=== PATIENT | female | born 1975 | race Caucasian/White ===

== ENCOUNTER 2016-10-24 08:11 | Day surgery (SDC) | payer MEDICAID ==
[2016-10-24] MEDS ORDERED: NS 1,000 ML IV SCH (09:15)
[2016-10-24] MEDS ORDERED: fentaNYL 100 MCG/2 ML INJ ONE (09:25)
[2016-10-24] MEDS ORDERED: MIDAZOLAM 2 MG/2 ML VIAL ONE (09:25)
[2016-10-24] MEDS ORDERED: IOPAMIDOL (ISOVUE-300) 100 ML BTL ONE (10:35)
[2016-10-24 11:53] VITALS: BP 138/79; PULSE 69; RESP 16; TEMP 97.5; O2SAT 100
== END 2016-10-24 11:28 | disposition home or self-care (01) ==
LOC: FIMAGING 08:11
PROVIDERS: ATTEND Nurse Practitioner Family
PROC: B51W1ZZ Fluoroscopy of Dialysis Shunt/Fistula using Low Osmolar Contrast (ICD-10-PCS; principal; 2016-10-24 10:43)
DX: T82.898A Other specified complication of vascular prosthetic devices, implants and grafts, initial encounter (principal); N18.6 End stage renal disease; Z99.2 Dependence on renal dialysis; Z85.3 Personal history of malignant neoplasm of breast
CPT/HCPCS: C1769; J1644; J2250; J3010; Q9967

== ENCOUNTER 2017-01-10 07:20 | Day surgery (SDC) | payer MEDICAID ==
--- NOTE | 2017-01-09 14:26 | GHP ---
[f rep st] PREOP HISTORY AND PHYSICAL DATE OF ADMISSION: 01/10/2017 REASON FOR ADMISSION: The patient is a 41-year-old female with chronic renal failure, on hemodialysi s, who had an arteriovenous fistula created many years ago. She required resection of an aneurysm in 2009 and repair of a pseudoaneurysm [place] [address] Mcmillan. She now comes to us after having a left upper extremity ultrasound-guided AV fistula access fistulogram with retrograde angiography to rule out stenosis, which showed a patent AV fistula, but with multiple pseudoaneurysms. She complained th at she can feel a thrill when she lies down, which keeps her awake. These are painful and prevent he r from flexing at her elbow. It also causes pain during dialysis. PAST MEDICAL HISTORY: End-stage renal disease, on dialysis. History of hyperkalemia, likely due to noncompliance, history of iron deficiency anemia, history of severe erosive esophagitis. PAST SURGICAL HISTORY: Includes arteriovenous fistula creation with aneurysm resection and pseudoane urysm repair as described above. Also, cholecystectomy, renal transplant, eardrum surgery, kidney re moval, tubal ligation. MEDICATIONS: Include losartan, potassium, Renagel, Renvela. She denies blood thinner use. ALLERGIES: Include amoxicillin, iron, Zofran, aspirin, grapefruit and penicillin. SOCIAL HISTORY: Patient smokes tobacco on occasion. She does not drink alcohol. She lives with her sister. REVIEW OF SYSTEMS: A 10-point review of systems negative aside from that noted in the HPI. PHYSICAL EXAMINATION: GENERAL: A 41-year-old female, alert and oriented x3, and in no acute distres s. HEENT: Normocephalic, atraumatic. CHEST: Clear to auscultation bilaterally. CARDIAC: Regular rate and rhythm with systolic murmur. EXTREMITIES: Palpable left upper extremity radial pulse with several aneurysms visible between the a ntecubital space to the proximal arm. Left hand is warm to touch. Fine motor exam is intact. ABDOMEN: Soft, nontender. IMPRESSION: This is a 41-year-old female with a long history of a left upper extremity arteriovenous fistula, now with multiple pseudoaneurysms. PLAN: Plan is to proceed with left upper extremity AV fistula revision, with repair of pseudoaneurys ms. This will likely need to occur in 2 stages. The patient understands that she will likely need t o return to the operating room for resection of other pseudoaneurysms along the length of her fistula . We will also be obtaining cardiac clearance prior to her surgery. The patient was seen and examin ed by Dr. Mcmillan. /[id number]/MODL
[2017-01-10] MEDS ORDERED: CLINDAMYCIN 900 MG/DEXTROSE 50 ML IV ONE (07:53)
[2017-01-10] MEDS ORDERED: LIDOCAINE 1% 2 ML INJ ID PRN (07:54)
--- NOTE | 2017-01-10 08:23 | PDANEPAE ---
ANE History of Present Illness 41 year old female w/ PMHx of ESRD (on HD, previous renal transplant in 2004), breast cancer s/p mastectomy, depression presents for left AV fistula revision. ANE Past Medical History - Cardiovascular History Hx Hypertension: Yes Hx Arrhythmias: No Hx Chest Pain: No Hx Coronary Artery / Peripheral Vascular Disease: No Hx CHF / Valvular Disease: No Hx Palpitations: No Cardiovascular History Comment: heart murmur - Pulmonary History Hx COPD: No Hx Asthma/Reactive Airway Disease: No Hx Recent Upper Respiratory Infection: No Hx Oxygen in Use at Home: No Hx Sleep Apnea: No Sleep Apnea Screening Result - Last Documented: Negative Pulmonary History Comment: URI BEGINNING 2014 - Neurologic History Hx Cerebrovascular Accident: No Hx Seizures: No Hx Dementia: No - Endocrine History Hx Diabetes: No Hypothyroid: No Hyperthyroid: No Obesity: no Endocrine History Comment: PARATHYROID REMVL - Renal History Hx Renal Disorders: Yes Renal History Comment: ESRD - Liver History Hx Hepatic Disorders: No - Neurological & Psychiatric Hx Hx Neurological and Psychiatric Disorders: Yes Neurological / Psychiatric History Comment: DEPRESSION - Cancer History Hx Cancer: Yes Cancer History Comment: Breast cancer 2016 - Congenital Disorder History Hx Congenital Disorders: No - GI History Hx Gastrointestinal Disorders: Yes Gastrointestinal History Comment: REFLUX, pepitc ulcer disease - Other Health History Other Health History: none - Chronic Pain History Chronic Pain: Yes (carpal tunnel) - Surgical History Prior Surgeries: LT AV FISTULA X 2. WENDI 2009. RT KIDNEY NEPHRECTOMY WITH TRANSPLANT 2004. PARATHYROIDECTOMY. Double mastectomy 2016. TUBAL LIGATION. T&T. LT EAR DRUM REBUILT ANE Review of Systems Review of systems is: negative Review of Systems: - Exercise capacity Exercise capacity: >=4 METS METS (RN): 4 METS ANE Patient History - Allergies Allergies/Adverse Reactions: amoxicillin [Amoxicillin] Allergy (Severe, Verified 08/26/09 18:07) CHEST CLOSES/HIVES iron [Iron] Allergy (Intermediate, Verified 08/26/09 18:06) Hives ondansetron [From Zofran (as hydrochloride)] Allergy (Intermediate, Verified 12:15) Hives aspirin [Aspirin] Allergy (Unknown, Verified 02/23/15 11:41) AVOID RT KIDNEY TRANSPLANT grapefruit [Grapefruit] Allergy (Unknown, Verified 02/23/15 11:41) AVOID RT KIDNEY TRANSPLANT NSAIDS (Non-Steroidal Anti-Inflamma [Nsaids] Allergy (Unknown, Verified 11:41) AVOID RT KIDNEY TRANSPLANT ascorbic acid Allergy (Verified 02/23/15 11:41) RASH/HIVES Penicillins Allergy (Verified 02/23/15 11:41) CHEST CLOSES/HIVES PLASTIC TAPE Allergy (Mild, Uncoded 08/26/09 18:08) Rash - Home Medications Home medications: home medication list seen and reviewed Home Medications: RX: Calcium Carbonate [Tums 500MG (*)] 500 mg PO TID PRN 02/23/15 [Last Taken 15:00] RX: Lansoprazole [Prevacid] 30 mg PO DAILY 02/23/15 [Last Taken 10/23/16] RX: Losartan Potassium [Cozaar] 50 mg PO MWF@07 02/23/15 [Last Taken 01/09/17 15 :00] RX: Sevelamer Carbonate [Renvela] 1,600 mg PO TIDMEAL 02/23/15 [Last Taken 01/09 20:00] - NPO status NPO Status: no food or drink >8 hours - Anes Hx Anes Hx: no prior problems - Smoking Hx Smoking Status: Light smoker Marijuana use: No - Alcohol Use Alcohol Use: Rarely - Family Anes Hx Family Anes Hx: neg - N/A Family Hx Anesthesia Complications: none ANE Labs/Vital Signs - Labs Result Diagrams: 01/10/17 08:20 - Vital Signs Vital Signs: reviewed preoperatively; see RN documention for details Height: 160.02 cm Weight: 49.895 kg ANE Physical Exam - Airway Neck exam: FROM Mallampati Score: Class 1 Mouth exam: normal dental/mouth exam - Pulmonary Pulmonary: no respiratory distress - Cardiovascular Cardiovascular: regular rate and rhythym - ASA Status ASA Status: IV ANE Anesthesia Plan Anesthesia Plan: general endotracheal anesthesia Total IV Anesthesia: No
[2017-01-10] MEDS ORDERED: PAPAVERINE HCL 60 MG/2 ML SDV ONE (08:24)
[2017-01-10] MEDS ORDERED: THROMBIN (BOVINE) 20,000 UNIT SPRAY TP ONE (08:26)
[2017-01-10] MEDS ORDERED: THROMBIN (BOVINE) 5,000 UNIT VIAL TP ONE (08:26)
[2017-01-10] MEDS ORDERED: PROTAMINE SULFATE 50 MG/5 ML VIAL IVP ONE (08:26)
[2017-01-10] MEDS ORDERED: BUPIVACAINE 0.5% 30 ML SDV ONE (08:26)
[2017-01-10 08:33] VITALS: TEMP 97.7
[2017-01-10 08:41] LABS: ANION GAP 19 mEq/L (8-16); CALCIUM 9.4 mg/dL (8.5-10.4); CARBON DIOXIDE 24 mEq/l (22-31); CHLORIDE 96 mEq/L (97-110); CREATININE 7.2 mg/dL (0.6-1.0); GLOMERULAR FILTRATION RATE 6; GLUCOSE 84 mg/dL (70-100); POTASSIUM 5.4 mEq/L (3.5-5.2); SODIUM 139 mEq/L (134-144)
--- NOTE | 2017-01-10 09:00 | CPEKG ---
Heart Rate: 77 RR Interval: 779 P-R Interval: 148 QRSD Interval: 70 QT Interval: 400 QTC Interval: 453 P [place]: 65 QRS [place]: 25 T Wave [place]: 54 EKG Severity - ABNORMAL ECG - EKG Impression: SINUS RHYTHM EKG Impression: LEFT VENTRICULAR HYPERTROPHY Electronically Signed By: Slade Dee 10-Jan-2017 11:35:39
[2017-01-10] MEDS ORDERED: NS 1,000 ML IV ONE (09:16)
[2017-01-10] MEDS ORDERED: MIDAZOLAM 2 MG/2 ML VIAL IVP ONE (09:21)
[2017-01-10] MEDS ORDERED: fentaNYL 100 MCG/2 ML INJ ONE ×4 (09:31→11:42)
[2017-01-10] MEDS ORDERED: LIDOCAINE 2% 100 MG/5 ML SYR ONE (09:31)
[2017-01-10] MEDS ORDERED: PROPOFOL 200 MG/20 ML VIAL ONE (09:32)
[2017-01-10] MEDS ORDERED: NS 500 ML IV ONE (09:40)
[2017-01-10] MEDS ORDERED: PHENYLEPHRINE HCL 100 MCG/ML SYR ONE (10:04)
[2017-01-10] MEDS ORDERED: NALOXONE HCL 0.4 MG/ML INJ IVP PRN (10:16)
[2017-01-10] MEDS ORDERED: PROMETHAZINE HCL 25 MG/ML INJ IVP PRN (10:16)
[2017-01-10] MEDS ORDERED: HYDROCODONE/APAP 5/325 TAB PO PRN (10:16)
[2017-01-10] MEDS ORDERED: LR 500 ML IV PRN (10:16)
[2017-01-10] MEDS: fentaNYL 100 MCG/2 ML INJ IVP PRN ×3 (11:25→11:45)
[2017-01-10] MEDS ORDERED: OXYCODONE/APAP 5/325 TAB ONE (11:43)
[2017-01-10] MEDS ORDERED: HYDROCODONE/APAP 5/325 TAB ONE (11:51)
[2017-01-10 12:20] VITALS: BP 173/89; PULSE 70; RESP 18; O2SAT 98
--- NOTE | 2017-01-10 19:56 | POSTANESTH ---
Post Anesthetic Evaluation Cardiovascular Status: Normal, Stable, Similar to Pre-Op Cond Respiratory Status: Normal, Stable, Similar to Pre-op Cond. Level of Consciousness/Mental Status: Can Participate in Eval, Alert and Oriented Pain Control: Adequate, Prn Tx Ordered Nausea/Vomiting Control: Adequate, Prn Tx Ordered Complications Possibly Related to Anesthesia: None Noted
--- NOTE | 2017-01-14 14:11 | GOP ---
[f rep st] OPERATIVE REPORT DATE OF OPERATION: 01/10/2017 SURGEON: Alberto Mcmillan MD ELECTRIC ORGAN INSPECTOR AND REPAIRER: LION Thomas. ANESTHESIA: Dr. Luis M Kingsley. PREOPERATIVE DIAGNOSIS: Symptomatic left arm arteriovenous fistula aneurysm. POSTOPERATIVE DIAGNOSIS: Symptomatic left arm arteriovenous fistula aneurysm. PROCEDURE PERFORMED: FINDINGS: Patient was found to have 2 areas of pseudoaneurysm formation in the left arm AV fistula, which was in the mid section of the fistula. She had a good section above and below for use in dialy sis. DESCRIPTION OF PROCEDURE: The patient was taken to the operating room where she received satisfactor y general endotracheal anesthesia by Dr. Kingsley. She was placed in the supine position with the le ft arm outstretched on an arm board. A longitudinal incision was made over the 2 separate aneurysms. Prior to this, a transverse incision was made proximal to the aneurysms where the vessel was encirc led for control with the vessel loop. A longitudinal incision was then made over the aneurysms. Car eful dissection extended down through subcutaneous tissue and the aneurysms were dissected free from the overlying skin and subcutaneous tissue. Distal control was also obtained by controlling the outf low vessel with a vessel loop. After adequate exposure was obtained, the patient was systemically he parinized and the vessels were occluded with vessel loops. The aneurysms were then opened longitudin ally. There was no significant debris. Aneurysm becker were debrided and then closed over 8 Bakes di lator in a 2-layer fashion using running 4-0 Prolene suture in 2 separate layers to perform the aneur ysmorrhaphy. Flow was reestablished. The wound was infiltrated with 0.5% Marcaine. Hemostasis appe ared to be adequate. Heparin was reversed with protamine. She maintained a good thrill and flow in the AV fistula. Subcu was then closed with 3-0 Vicryl and the skin with interrupted macey. The wo und was infiltrated with 0.5%Marcaine. She tolerated the procedure well and was taken to the recover y room in good condition. There were no complications. PROCEDURE PERFORMED: 1. Ultrasound vein mapping of the left arm arteriovenous fistula. 2. Resection of arteriovenous fistula aneurysms. /[id number]/MODL
== END 2017-01-10 12:40 | disposition home or self-care (01) ==
LOC: FSGY 07:20
PROVIDERS: ATTEND Surgery
PROC: 03V Upper Arteries, Restriction (ICD-10-PCS; principal; 2017-01-10 09:00)
DX: T82.898A Other specified complication of vascular prosthetic devices, implants and grafts, initial encounter (principal); N18.6 End stage renal disease; Z88.0 Allergy status to penicillin; D50.9 Iron deficiency anemia, unspecified; F17.210 Nicotine dependence, cigarettes, uncomplicated; Y83.2 Surgical operation with anastomosis, bypass or graft as the cause of abnormal reaction of the patient, or of later complication, without mention of misadventure at the time of the procedure; Z90.5 Acquired absence of kidney; T86.12 Kidney transplant failure; Z99.2 Dependence on renal dialysis
CPT/HCPCS: J1644; J2001; J2250; J2370; J2440; J2704; J2720; J3010

== ENCOUNTER → 2017-03-13 | Day surgery (SDC) | payer MEDICAID ==
[~2017-03-13] MED LIST: BUPIVACAINE 0.5% 30 ML SDV ONE; CLINDAMYCIN 900 MG/DEXTROSE 50 ML IV ONE; ETOMIDATE 20 MG/10 ML VIAL ONE; LIDOCAINE 1% 2 ML INJ ID PRN; LR 1,000 ML IV ONE; NS 1,000 ML IV ONE; PAPAVERINE HCL 60 MG/2 ML SDV ONE; PROTAMINE SULFATE 50 MG/5 ML VIAL IVP ONE; ROCURONIUM 50 MG/5 ML VIAL ONE; THROMBIN (BOVINE) 20,000 UNIT SPRAY TP ONE; THROMBIN (BOVINE) 5,000 UNIT VIAL TP ONE; fentaNYL 100 MCG/2 ML INJ ONE
[2017-03-13 06:22] VITALS: BP 107/69; PULSE 65; RESP 16; TEMP 98.6; O2SAT 95
--- NOTE | 2017-03-13 06:43 | PDANEPAE ---
ANE History of Present Illness 41 year old female with ESRD on HD for 20 years. Last HD 03/12/17. Blood pressure well controlled on losartan. Today was 107/69. She had some nausea with the last anesthetic. Denies pulmonary issues. ANE Past Medical History - Cardiovascular History Hx Hypertension: Yes Hx Arrhythmias: No Hx Chest Pain: No Hx Coronary Artery / Peripheral Vascular Disease: No Hx CHF / Valvular Disease: Yes Hx Palpitations: No Cardiovascular History Comment: heart murmur - Pulmonary History Hx COPD: No Hx Asthma/Reactive Airway Disease: No Hx Recent Upper Respiratory Infection: No Hx Oxygen in Use at Home: No Hx Sleep Apnea: No Sleep Apnea Screening Result - Last Documented: Negative Pulmonary History Comment: URI BEGINNING 2014 - Neurologic History Hx Cerebrovascular Accident: No Hx Seizures: No Hx Dementia: No - Endocrine History Hx Diabetes: No Endocrine History Comment: PARATHYROID REMVL - Renal History Hx Renal Disorders: Yes Renal History Comment: ESRD. Kidney transplant 2004 - Liver History Hx Hepatic Disorders: No - Neurological & Psychiatric Hx Hx Neurological and Psychiatric Disorders: Yes Neurological / Psychiatric History Comment: DEPRESSION - Cancer History Hx Cancer: Yes Cancer History Comment: Breast cancer 2016 - Congenital Disorder History Hx Congenital Disorders: Yes Congenital History Comment: BREAST CANCER - GI History Hx Gastrointestinal Disorders: Yes Gastrointestinal History Comment: REFLUX, pepitc ulcer disease - Other Health History Other Health History: none - Chronic Pain History Chronic Pain: No - Surgical History Prior Surgeries: LT AV FISTULA X 2. WENDI 2009. RT KIDNEY NEPHRECTOMY WITH TRANSPLANT 2004. PARATHYROIDECTOMY. Double mastectomy 2016. TUBAL LIGATION. T&T. LT EAR DRUM REBUILT ANE Review of Systems Review of Systems: - Exercise capacity METS (RN): 4 METS ANE Patient History - Allergies Allergies/Adverse Reactions: amoxicillin [Amoxicillin] Allergy (Severe, Verified 03/12/17 14:49) CHEST CLOSES/HIVES iron [Iron] Allergy (Intermediate, Verified 03/12/17 14:49) Hives ondansetron [From Zofran (as hydrochloride)] Allergy (Intermediate, Verified 14:49) Hives aspirin [Aspirin] Allergy (Unknown, Verified 03/12/17 14:49) AVOID RT KIDNEY TRANSPLANT grapefruit [Grapefruit] Allergy (Unknown, Verified 03/12/17 14:49) AVOID RT KIDNEY TRANSPLANT NSAIDS (Non-Steroidal Anti-Inflamma [Nsaids] Allergy (Unknown, Verified 14:49) AVOID RT KIDNEY TRANSPLANT ascorbic acid Allergy (Verified 03/12/17 14:49) RASH/HIVES Penicillins Allergy (Verified 03/12/17 14:49) CHEST CLOSES/HIVES PLASTIC TAPE Allergy (Mild, Uncoded 08/26/09 18:08) Rash - Home Medications Home Medications: Calcium Carbonate [Tums 500MG (*)] 02/23/15 [Last Taken 03/05/17] Lansoprazole [Prevacid] 02/23/15 [Last Taken 03/05/17] Losartan Potassium [Cozaar] 02/23/15 [Last Taken 03/13/17 04:45] Sevelamer Carbonate [Renvela] 02/23/15 [Last Taken 03/05/17] Ambien 03/12/17 [Last Taken 03/11/17] Amlodipine Besylate 03/12/17 [Last Taken 03/05/17] Diclofenac Sodium 03/12/17 [Last Taken 03/11/17] Diphenhydramine HCl 03/12/17 [Last Taken 03/05/17] Ferrous Fumarate 03/12/17 [Last Taken 03/05/17] Lexapro 03/12/17 [Last Taken 03/05/17] Renagel 400mg (*) 03/12/17 [Last Taken 03/05/17] - NPO status NPO Since - Liquids (Date): 03/12/17 NPO Since - Liquids (Time): 20:00 NPO Since - Solids (Date): 03/12/17 NPO Since - Solids (Time): 20:00 - Smoking Hx Smoking Status: Light smoker - Family Anes Hx Family Hx Anesthesia Complications: none ANE Labs/Vital Signs - Vital Signs Blood Pressure: 107/69 Heart Rate: 65 Respiratory Rate: 16 O2 Sat (%): 95 Height: 160.02 cm Weight: 49.895 kg ANE Physical Exam - Airway Neck exam: FROM Mallampati Score: Class 1 Mouth exam: normal dental/mouth exam - Pulmonary Pulmonary: no respiratory distress - Cardiovascular Cardiovascular: regular rate and rhythym - ASA Status ASA Status: III ANE Anesthesia Plan Anesthesia Plan: general endotracheal anesthesia
[2017-03-13 07:00] LABS: PLATELET COUNT 220 10^3/uL (150-400)
--- NOTE | 2017-03-14 14:37 | GCON ---
[f rep st] CONSULTATION Patient is a 41-year-old female, who is in the preop for preparation for a left AV fistula revision. However, on preop evaluation, her potassium was 6.8. She was asymptomatic from this. We repeated t he value, it came back 6.7, and we elected to postpone the surgical procedure until she can have furt her dialysis. I did this consultation with her post acute care registered nurse, Dr. Enciso. /[id number]/MODL
== END ==
LOC: FSGY 05:22
PROVIDERS: ATTEND Surgery
DX: Z53.8 Procedure and treatment not carried out for other reasons (principal); I77.0 Arteriovenous fistula, acquired; N18.6 End stage renal disease; F17.200 Nicotine dependence, unspecified, uncomplicated; Z88.0 Allergy status to penicillin
CPT/HCPCS: J1644; J2440; J2720; J3010

== ENCOUNTER 2017-03-15 10:08 | Day surgery (SDC) | payer MEDICAID ==
[2017-03-15] MEDS ORDERED: THROMBIN (BOVINE) 5,000 UNIT VIAL TP ONE (10:12)
[2017-03-15] MEDS ORDERED: BUPIVACAINE 0.5% 30 ML SDV ONE (10:12)
[2017-03-15] MEDS ORDERED: LIDOCAINE 1% 2 ML INJ ID PRN (10:32)
[2017-03-15] MEDS ORDERED: NS 1,000 ML IV ONE (10:32)
[2017-03-15] MEDS ORDERED: MIDAZOLAM 2 MG/2 ML VIAL IVP ONE (11:18)
--- NOTE | 2017-03-15 11:18 | PDANEPAE ---
ANE History of Present Illness revision L AV fistula ANE Past Medical History - Cardiovascular History Hx Hypertension: Yes Hx Arrhythmias: No Hx Chest Pain: No Hx Coronary Artery / Peripheral Vascular Disease: No Hx CHF / Valvular Disease: Yes Hx Palpitations: No Cardiovascular History Comment: heart murmur - Pulmonary History Hx COPD: No Hx Asthma/Reactive Airway Disease: No Hx Recent Upper Respiratory Infection: No Hx Oxygen in Use at Home: No Hx Sleep Apnea: No Sleep Apnea Screening Result - Last Documented: Negative Pulmonary History Comment: URI BEGINNING 2014 - Neurologic History Hx Cerebrovascular Accident: No Hx Seizures: No Hx Dementia: No - Endocrine History Hx Diabetes: No Endocrine History Comment: PARATHYROID REMVL - Renal History Hx Renal Disorders: Yes Renal History Comment: ESRD. Kidney transplant 2004 - Liver History Hx Hepatic Disorders: No - Neurological & Psychiatric Hx Hx Neurological and Psychiatric Disorders: Yes Neurological / Psychiatric History Comment: DEPRESSION - Cancer History Hx Cancer: Yes Cancer History Comment: Breast cancer 2015 - Congenital Disorder History Hx Congenital Disorders: Yes Congenital History Comment: BREAST CANCER - GI History Hx Gastrointestinal Disorders: Yes Gastrointestinal History Comment: REFLUX, pepitc ulcer disease - Other Health History Other Health History: none - Chronic Pain History Chronic Pain: No - Surgical History Prior Surgeries: LT AV FISTULA X 2. WENDI 2009. RT KIDNEY NEPHRECTOMY WITH TRANSPLANT 2004. PARATHYROIDECTOMY. Double mastectomy 2016. TUBAL LIGATION. T&T. LT EAR DRUM ROCKY FLORES Review of Systems Review of Systems: - Exercise capacity METS (RN): 4 METS ANE Patient History - Allergies Allergies/Adverse Reactions: amoxicillin [Amoxicillin] Allergy (Severe, Verified 03/12/17 14:49) CHEST CLOSES/HIVES iron [Iron] Allergy (Intermediate, Verified 03/12/17 14:49) Hives ondansetron [From Zofran (as hydrochloride)] Allergy (Intermediate, Verified 14:49) Hives aspirin [Aspirin] Allergy (Unknown, Verified 03/12/17 14:49) AVOID RT KIDNEY TRANSPLANT grapefruit [Grapefruit] Allergy (Unknown, Verified 03/12/17 14:49) AVOID RT KIDNEY TRANSPLANT NSAIDS (Non-Steroidal Anti-Inflamma [Nsaids] Allergy (Unknown, Verified 14:49) AVOID RT KIDNEY TRANSPLANT ascorbic acid Allergy (Verified 03/12/17 14:49) RASH/HIVES Penicillins Allergy (Verified 03/12/17 14:49) CHEST CLOSES/HIVES PLASTIC TAPE Allergy (Mild, Uncoded 08/26/09 18:08) Rash - Home Medications Home Medications: Calcium Carbonate [Tums 500MG (*)] 02/23/15 [Last Taken 03/14/17] Lansoprazole [Prevacid] 02/23/15 [Last Taken 03/14/17] Losartan Potassium [Cozaar] 02/23/15 [Last Taken 03/14/17] Sevelamer Carbonate [Renvela] 02/23/15 [Last Taken 03/14/17] Ambien 03/12/17 [Last Taken 03/11/17] Amlodipine Besylate 03/12/17 [Last Taken 03/14/17] Diclofenac Sodium 03/12/17 [Last Taken 03/14/17] Diphenhydramine HCl 03/12/17 [Last Taken 03/14/17] Ferrous Fumarate 03/12/17 [Last Taken 03/14/17] Lexapro 03/12/17 [Last Taken 03/14/17] Renagel 400mg (*) 03/12/17 [Last Taken 03/14/17] - NPO status NPO Since - Liquids (Date): 03/14/17 NPO Since - Liquids (Time): 20:30 NPO Since - Solids (Date): 03/14/17 NPO Since - Solids (Time): 20:30 - Smoking Hx Smoking Status: Light smoker - Family Anes Hx Family Hx Anesthesia Complications: none ANE Labs/Vital Signs - Labs Result Diagrams: 03/15/17 11:00 - Vital Signs Blood Pressure: 130/80 Heart Rate: 94 Respiratory Rate: 16 O2 Sat (%): 96 Height: 160.02 cm Weight: 49.895 kg ANE Physical Exam - Airway Neck exam: FROM Mallampati Score: Class 2 Mouth exam: normal dental/mouth exam - Pulmonary Pulmonary: no respiratory distress - Cardiovascular Cardiovascular: regular rate and rhythym - ASA Status ASA Status: III ANE Anesthesia Plan Anesthesia Plan: GA w LMA
[2017-03-15] MEDS ORDERED: CLINDAMYCIN 900 MG/DEXTROSE 50 ML IV ONE (11:26)
--- NOTE | 2017-03-15 11:26 | PDHPUP ---
History & Physical Update H&P update statement: This history and physical update is based on an assessment of the patient which was completed after admission or registration (within 24 hours), but prior to the surgery/procedure.
[2017-03-15] MEDS ORDERED: fentaNYL 100 MCG/2 ML INJ ONE ×3 (11:35→14:04)
[2017-03-15] MEDS ORDERED: DEXAMETHASONE 4 MG/ML VIAL ONE (11:35)
[2017-03-15] MEDS ORDERED: PROPOFOL/EMULSION 500 MG/50 ML BOTTLE IV ONE (11:35)
[2017-03-15] MEDS ORDERED: ONDANSETRON 4 MG/2 ML VIAL ONE (11:36)
[2017-03-15] MEDS ORDERED: LIDOCAINE 2% JELLY 5 ML TUBE ONE (11:36)
[2017-03-15] MEDS ORDERED: LIDOCAINE 2% 100 MG/5 ML SYR ONE (11:36)
[2017-03-15] MEDS ORDERED: HEPARIN 10,000 UNIT/10 ML MDV (1,000 UNIT/ML) ONE (12:25)
[2017-03-15] MEDS ORDERED: PROTAMINE SULFATE 50 MG/5 ML VIAL IVP ONE (12:51)
[2017-03-15] MEDS ORDERED: ALBUTEROL 3 ML DEYVIAL IH PRN (13:04)
[2017-03-15] MEDS ORDERED: METOCLOPRAMIDE 10 MG/2 ML VIAL IVP PRN (13:04)
[2017-03-15] MEDS ORDERED: PHENYLEPHRINE HCL 100 MCG/ML SYR IVP PRN (13:04)
[2017-03-15] MEDS ORDERED: NALOXONE HCL 0.4 MG/ML INJ IVP PRN (13:04)
[2017-03-15] MEDS ORDERED: DEXAMETHASONE 4 MG/ML VIAL IVP PRN (13:04)
[2017-03-15] MEDS ORDERED: PROMETHAZINE HCL 25 MG/ML INJ IVP PRN (13:04)
[2017-03-15] MEDS ORDERED: LABETALOL HCL 5 MG/ML 20 ML MDV IVP PRN (13:04)
[2017-03-15] MEDS ORDERED: HYDROCODONE/APAP 5/325 TAB PO PRN (13:04)
[2017-03-15] MEDS ORDERED: LR 500 ML IV PRN (13:04)
[2017-03-15] MEDS: fentaNYL 100 MCG/2 ML INJ IVP PRN ×3 (13:33→14:05)
[2017-03-15] MEDS ORDERED: OXYCODONE/APAP 5/325 TAB PO PRN (13:55)
--- NOTE | 2017-03-15 13:58 | POSTOPPROG ---
Post Op Note Date of Operation: 03/15/17 Surgeon: Alberto Mcmillan Bicycle Repairer: LISSY Anesthesiologist: LIZBETH Anesthesia: GET(General Endotracheal) Pre-op Diagnosis: AV FISTULA ANEURYSM Post-op Diagnosis: SAME Indication: PAIN Procedure: RESECTION OF AV FISTULA ANEURYSM Findings: 6 CM X 3 CM ANEURYSM OF PROXIMAL AV FISTULA Inf/Abcess present in the surg proc area at time of surgery?: No Depth: Deep Incisional (Fascial) EBL: Minimal Complications: NONE Specimen(s): ANEURYSM WALL
[2017-03-15 14:07] VITALS: TEMP 98.6
[2017-03-15] MEDS ORDERED: HYDROCODONE/APAP 5/325 TAB ONE (14:26)
[2017-03-15 14:42] VITALS: BP 133/91; O2SAT 98
[2017-03-15 15:50] VITALS: PULSE 98; RESP 18
--- NOTE | 2017-03-15 18:44 | POSTANESTH ---
Post Anesthetic Evaluation Cardiovascular Status: Normal, Stable Respiratory Status: Normal, Stable Level of Consciousness/Mental Status: Can Participate in Eval Pain Control: Adequate, Prn Tx Ordered Nausea/Vomiting Control: Adequate, Prn Tx Ordered Complications Possibly Related to Anesthesia: None Noted
--- NOTE | 2017-03-18 16:50 | GOP ---
[f rep st] OPERATIVE REPORT DATE OF OPERATION: 03/15/2017 SURGEON: Albetro Mcmillan MD MANUFACTURING ENGINEER: Ellie Martinez, nurse practitioner. . PREOPERATIVE DIAGNOSIS: Arteriovenous fistula aneurysm. POSTOPERATIVE DIAGNOSIS: Arteriovenous fistula aneurysm. PROCEDURE PERFORMED: Arteriovenous fistula aneurysm resection. FINDINGS: Patient was found to have a 3.5 cm aneurysmal dilatation of the proximal segment of her AV fistula in the antecubital space of the left arm. She had excellent flow in the fistula. DESCRIPTION OF PROCEDURE: The patient was taken to the operating room, where she received satisfacto ry general endotracheal anesthesia. She was placed in a supine position with her left arm outstretch ed on an arm board, prepped and draped in usual sterile fashion. A longitudinal incision was made al corrina the course of the aneurysm from the antecubital space cephalad. Skin flaps were developed and th e aneurysmal area of the fistula was dissected free. Proximal control was obtained with a vessel loo p at the venous arterial anastomosis. Distal control was also obtained with a vessel loop. The ramses ent was then heparinized, and after adequate circulation time the fistula was occluded with the vesse l loops. The aneurysm was opened. A portion of the aneurysm wall was resected, trimming the vein si ze down to the 6-Ugandan dilator. The wall was then closed with a running 4-0 Prolene suture, followe d by a second layer of running 4-0 Prolene suture. Suture line was covered with some Dermabond glue. The wound was irrigated. Hemostasis was assured. Some topical thrombin was placed in the cavity, and the wound was infiltrated with 0.5% Marcaine. It was then closed with 3-0 Vicryl for the subcuta neous tissue and a 4-0 Monocryl subcuticular stitch for the skin. She tolerated the procedure well. There were no complications. She still had good fistula flow and excellent distal flow into her souza d. The wound was dressed with the Dermabond. She was taken to the recovery room in good condition. There were no complications. Blood loss negligible. /[id number]/MODL
== END 2017-03-15 15:55 | disposition home or self-care (01) ==
LOC: FSGY 10:08
PROVIDERS: ATTEND Surgery
PROC: 03V Upper Arteries, Restriction (ICD-10-PCS; principal; 2017-03-15 11:45)
DX: T82.898A Other specified complication of vascular prosthetic devices, implants and grafts, initial encounter (principal); N18.6 End stage renal disease; Y83.2 Surgical operation with anastomosis, bypass or graft as the cause of abnormal reaction of the patient, or of later complication, without mention of misadventure at the time of the procedure; F17.210 Nicotine dependence, cigarettes, uncomplicated; D50.9 Iron deficiency anemia, unspecified; Z85.3 Personal history of malignant neoplasm of breast; Z99.2 Dependence on renal dialysis; Z88.0 Allergy status to penicillin; T86.12 Kidney transplant failure; Z90.5 Acquired absence of kidney
CPT/HCPCS: J1100; J1644; J2001; J2250; J2405; J2704; J2720; J3010

== ENCOUNTER 2018-03-24 17:30 | Emergency (ER) | payer MEDICAID ==
--- NOTE | 2018-03-24 17:41 | EDPHY ---
H & P Stated Complaint: tired, clammy, painful BM Time Seen by Provider: 03/24/18 17:40 HPI/ROS: CHIEF COMPLAINT: "I want to get a second opinion," left flank pain HISTORY OF PRESENT ILLNESS: The patient is a 42 y/o female with a history of pancreatitis, end-stage renal disease on dialysis, and polycystic kidney disease arriving with her friend complaining of left flank pain radiating to the front of her abdomen for at least 2 weeks. She was admitted overnight at [facility] 3 weeks ago with pancreatitis and possibly hyperkalemia. She reports she has gotten pancreatitis on average twice per year for the last 4 years. She returned to [facility] a week later complaining of left flank pain radiating to her abdomen. She was told there was a stone in her kidney. It's not clear what the treatment plan was following this. Today she had a pale-colored and "almost" loose stool, which she has never experienced before. She reports she has been on PRN Phenergan for years and used this recently for nausea. She denies vomiting, fever, hematuria, dysuria. She denies alcohol use. She is a poor historian and it's not clear that any of her symptoms are different compared to her most recent ED visit. She states she is here because she wants a second opinion. Records from [facility] dated 03/03/18: "Patient with ESRD and recurrent pancreatitis presented to ED with hyperkalemia (7.1) and mild flare of pancreatitis. Was treated effectively with bicarb, dextrose, insulin, calcium, and hemodialysis. Abdominal symptoms returned to baseline. Discharged home" REVIEW OF SYSTEMS: A ten system review of systems was performed and is negative with the exception of the items mentioned in the HPI. Past medical history: 1. Renal failure on MWF dialysis 2. Erosive esophagitis 3. Pancreatitis Past surgical history: 1. Cholecystectomy 2. AV fistula with revisions 3. Renal transplants 4. Nephrectomy 5. Tubal ligation Family history: Noncontributory Social history: No alcohol. Friend at bedside. PCP: Dr. Hinojosa, Nephrology: Dr. Triana, GI: Dr. Claudio. Prior medical records reviewed including [facility] 03/05/17, [facility] records 03/03/18 for hyperkalemia & pancreatitis. General Appearance: Alert. Vital signs reviewed. The BP 182/104. Eyes: Pupils equal and round, no conjunctival injection, no discharge. Anicteric. ENT, Mouth: Mucous membranes are moist, no oropharyngeal erythema or edema. Neck: No lymphadenopathy, supple. Respiratory: Lungs are clear to auscultation; no wheezes, rales, or rhonchi. Cardiovascular: Regular rate and rhythm; 3/6 systolic murmur, no rub or gallop. Gastrointestinal: Abdomen is soft, mid epigastric tenderness, no masses or organomegaly. Skin: Warm and dry, no rashes on exposed skin, normal color. Back: Nontender to palpation over the thoracolumbar spine. No CVAT. Extremities: No lower extremity edema, no calf tenderness or swelling. Fistula with thrill left arm. Neurological: Alert and oriented. Moving all four extremities easily and equally. Psychiatric: Normal affect. - Personal History Current Tetanus/Diphtheria Vaccine: Yes Current Tetanus Diphtheria and Acellular Pertussis (TDAP): Yes - Medical/Surgical History Hx Asthma: No Hx Chronic Respiratory Disease: No Hx Diabetes: No Hx Cardiac Disease: No Hx Renal Disease: Yes Hx Cirrhosis: No Hx Alcoholism: No Hx HIV/AIDS: No Hx Splenectomy or Spleen Trauma: No Other PMH: dialysis, end stage renal disease, polycystic kidney disease - Social History Smoking Status: Light smoker Constitutional: Initial Vital Signs Temperature (C) 37 C 03/24/18 17:37 Heart Rate 98 03/24/18 17:37 Respiratory Rate 16 03/24/18 17:37 Blood Pressure 182/104 H 03/24/18 17:37 O2 Sat (%) 97 03/24/18 17:37 O2 Delivery Mode Room Air Allergies/Adverse Reactions: amoxicillin [Amoxicillin] Allergy (Severe, Verified 03/12/17 14:49) CHEST CLOSES/HIVES iron [Iron] Allergy (Intermediate, Verified 03/12/17 14:49) Hives ondansetron [From Zofran (as hydrochloride)] Allergy (Intermediate, Verified 14:49) Hives aspirin [Aspirin] Allergy (Unknown, Verified 03/12/17 14:49) AVOID RT KIDNEY TRANSPLANT grapefruit [Grapefruit] Allergy (Unknown, Verified 03/12/17 14:49) AVOID RT KIDNEY TRANSPLANT NSAIDS (Non-Steroidal Anti-Inflamma [Nsaids] Allergy (Unknown, Verified 14:49) AVOID RT KIDNEY TRANSPLANT ascorbic acid Allergy (Verified 03/12/17 14:49) RASH/HIVES epoetin cheikh [From Epogen] Allergy (Verified 03/24/18 17:35) Penicillins Allergy (Verified 03/12/17 14:49) CHEST CLOSES/HIVES PLASTIC TAPE Allergy (Mild, Uncoded 08/26/09 18:08) Rash Home Medications: Medication Instructions Recorded Calcium Carbonate [Tums 500MG (*)] 02/23/15 Lansoprazole [Prevacid] 02/23/15 Sevelamer Carbonate [Renvela] 02/23/15 Ambien 03/12/17 Diphenhydramine HCl 03/12/17 Renagel 400mg (*) 03/12/17 Amlodipine Besylate 03/24/18 Medical Decision Making ED Course/Re-evaluation: This is a 42 y/o female with end stage renal disease on dialysis who presents with at least a 2-week history of waxing and waning left flank pain radiating to her abdomen. She has already been assessed at [facility] for the same complaint. She has mild epigastric tenderness on exam. She is hypertensive at 182/104. Suspect chronic pancreatitis. Plan for IV, labs, symptomatic management. 0.5mg IV Dilaudid and 12.5mg IV Phenergan ordered. Electrolytes normal. Creatinine elevated at 11.3, K 5.1. Anemia, likely of chronic disease. Lipase mildly elevated at 362. I suspect chronic pancreatitis. No N/V, able to take PO. No diarrhea. I do not think that her complaints are due to an infectious etiology. I explained to her that I think her treatment at [facility] was appropriate. I do not recommend additional testing or treatment today. No reason for imaging. I do not find an emergency medical condition today. She is compliant with her dialysis dates. I recommend FU with PCP, nephrology, and her GI doctor. If she continues with midepigastric and/or flank pain she might require additional studies ( endoscopy to assess for GERD, PUD). Initial BP 182/104, BP at DC 154/75. - Data Points Laboratory Results: Laboratory Results 03/24/18 18:12 03/24/18 18:12 Medications Given: Discontinued Medications Hydrocodone Bitart/Acetaminophen (Ames 5/325mg Prepack#6) 1 btl TAKEHOME EDNOW ONE Stop: 03/24/18 19:47 Last Admin: 03/24/18 19:59 Dose: 1 btl Hydromorphone HCl (Dilaudid) 0.5 mg IVP EDNOW ONE Stop: 03/24/18 19:05 Last Admin: 03/24/18 19:25 Dose: 0.5 mg Promethazine HCl (Phenergan) 12.5 mg IVP EDNOW ONE Stop: 03/24/18 19:04 Last Admin: 03/24/18 19:25 Dose: 12.5 mg Departure - Departure Disposition: Home, Routine, Self-Care Clinical Impression: Chronic pancreatitis Qualifiers: Pancreatitis type: other Qualified Code(s): K86.1 - Other chronic pancreatitis Abdominal pain Qualifiers: Abdominal location: epigastric Qualified Code(s): R10.13 - Epigastric pain Condition: Good Instructions: Hydrocodone/Acetaminophen (By mouth), Pancreatitis (ED) Additional Instructions: 1. Take Vicodin as prescribed when needed for severe pain. This medication can make you drowsy and constipated. Do not use prior to driving. 2. Follow up with Dr. Claudio in the next 2-3 days. I recommend calling tomorrow to schedule this appointment. 3. Return to the ED for worsening of condition. Referrals: DESMOND HINOJOSA [Primary Care Provider] - As per Instructions Atiya Claudio MD [Medical Doctor] - As per Instructions Stand Alone Forms: Narcotic Guidelines Report Scribed for: Luisa Rogel Report Scribed by: Krista Diamond Date of Report: 03/24/18 Time of Report: 17:42 Physician Review and Approval Statement: 03/30/18 11:23 Portions of this chart were entered by a medical screener. I have reviewed the chart and agree with the documentation.
[2018-03-24 18:21] LABS: PLATELET COUNT 234 10^3/uL (150-400)
[2018-03-24] MEDS ORDERED: PROMETHAZINE HCL 25 MG/ML INJ IVP ONE (19:03)
[2018-03-24] MEDS ORDERED: HYDROmorphONE/DILAUDID 2 MG/ML INJ IVP ONE (19:04)
[2018-03-24] MEDS ORDERED: HYDROCOD/APAP 5/325 PREPACK#6 BTL TAKEHOME ONE (19:46)
[2018-03-24 20:03] VITALS: BP 154/75
== END 2018-03-24 20:03 | disposition home or self-care (01) ==
DX: K86.1 Other chronic pancreatitis (principal); N18.6 End stage renal disease; E87.5 Hyperkalemia; Z99.2 Dependence on renal dialysis; Z90.49 Acquired absence of other specified parts of digestive tract
CPT/HCPCS: 96374; J1170; J2550